=== PATIENT | male | born 1955 | race Caucasian/White ===

== ENCOUNTER → 2020-10-03 | Outpatient (CLI) | payer OTHER ==
[2020-10-03 08:48] LABS: C REACTIVE PROTEIN 1.3 mg/dL (<=0.9); CALCIUM 8.7 mg/dL (8.5-10.1)
== END | disposition home or self-care (01) ==
LOC: MI 07:54
PROC: BR30ZZZ Magnetic Resonance Imaging (MRI) of Cervical Spine (ICD-10-PCS; principal; 2020-10-03)
DX: M48.02 Spinal stenosis, cervical region (principal)
CPT/HCPCS: 82308